=== PATIENT | male | born 1945 | race African-American/Black ===

== ENCOUNTER 2018-05-29 12:33 | Emergency (ER) | payer MEDICARE ==
[~2018-05-29] VITALS: Ht 172.7 cm; Wt 81.8 kg
[~2018-05-29 12:33] MED LIST: OXYCODONE
[2018-05-29] MEDS ORDERED: LISI-662 PO (12:48)
[2018-05-29 13:54] VITALS: BP 143/85
== END 2018-05-29 16:07 | disposition home or self-care (01) ==
LOC: EMS 12:33
DX: S60.212A Contusion of left wrist, initial encounter (principal); G89.29 Other chronic pain; I10 Essential (primary) hypertension; F17.210 Nicotine dependence, cigarettes, uncomplicated; Z79.899 Other long term (current) drug therapy; W10.9XXA Fall (on) (from) unspecified stairs and steps, initial encounter; Y93.89 Activity, other specified; Y92.89 Other specified places as the place of occurrence of the external cause; Y99.8 Other external cause status